=== PATIENT | female | born 1930 | race Caucasian/White ===

== ENCOUNTER 2016-07-25 05:57 | Day surgery (SDC) | payer MEDICARE, BC ==
[2016-07-21 09:36] LABS: HEMOGLOBIN 12.7 g/dL (12.0-16.0)
[2016-07-21 09:41] LABS: CHLORIDE, SERUM 100 MMOL/L (96-112); CO2 (CARBON DIOXIDE) 28 MMOL/L (24-34); CREATININE 1.26 MG/DL (0.55-1.02); GFR AFRICAN AMERICAN 44 ML/MIN (>=60); GFR NON AFRICAN AMERICAN 38 ML/MIN (>=60); POTASSIUM, SERUM 5.1 MMOL/L (3.5-5.3); SODIUM, SERUM 137 MMOL/L (135-148)
[2016-07-21 09:42] LABS: BUN (BLOOD UREA NITROGEN) 23 MG/DL (6-23); GLUCOSE, SERUM 105 MG/DL (60-99)
--- NOTE | ~2016-07-25 | OP ---
Record Of Operation [facility] [address] [place]. [address] NAME: RENEE SCHMID : 28 STATUS : [facility]#: [id number] AGE: 86 ADM/REG DATE : 07/25/16 MR#: [id number] REPORT SERV DATE: 07/25/16 DICTATED BY: CK SANDERS DATE: 07/25/16 REPORT STATUS : Draft TRANSCRIBED BY: MODJosh DATE: 07/25/16 DATE OF PROCEDURE: 07/25/2016 ANESTHESIA: General. COMPLICATIONS: None. ESTIMATED BLOOD LOSS: 10 mL. PREOPERATIVE DIAGNOSIS: Vulvar lesion with vulvar abscess. POSTOPERATIVE DIAGNOSIS: Vulvar lesion with vulvar abscess. OPERATION: Simple partial vulvectomy with excision of vulvar lesion/abscess bilaterally just anterior to the anus. PROCEDURE IN DETAIL: The patient was taken to the operating room and placed on the operating table in the Reginaldo stirrups. After adequate anesthesia, the patient was prepped and draped in usual sterile fashion. Two ellipses of skin and abscess were removed, one on each side of the anus anterior to the anus and the perineal area were excised. Each elliptical incision was approximately 4-5 cm in length. The lesions were superficially excised using cautery. Hemostasis was obtained, and the wounds were then reapproximated with multiple interrupted 2-0 Vicryl sutures. Hemostasis was noted to be good. The patient tolerated the procedure well and was taken to the recovery room in stable condition. RONNI Ck Sanders M.D. / [id number] CC: Catarino Le Rafael
[~2016-07-25 05:57] MED LIST: AQUASOL E50 UNT/ML PO; ASA5GR PO; BENICAR40 PO; CALTRAT600 PO; CLONAZEPAM PO; DIOV80 PO; DOLOPHINE5 MG PO; DRONED400 PO; FE C PO; FIBER TAB PO; FISH-EPA1000 MG PO; KLONO1 PO; MIRALAXPKT PO; MULTAQ400 MG PO; MULTIPLE VIT PO; MULTIVITAMI1 PO; MYRBETRIQ50 MG PO; NEUPRO 2MG2 MG/24 HR TOP; NEUR100 PO; ULTRAM50 PO; VITE PO; [UNRECOGNIZED DRUG - OTHER] PO
== END 2016-07-25 14:29 | disposition home or self-care (01) ==
LOC: SDC 05:57
PROVIDERS: Obstetrics & Gynecology Gynecology
PROC: 0HQAXZZ Repair Inguinal Skin, External Approach (ICD-10-PCS; 2016-07-25)
PROC: 0UBM0ZZ Excision of Vulva, Open Approach (ICD-10-PCS; principal; 2016-07-25 08:00)
DX: N90.7 Vulvar cyst (principal); F05 Delirium due to known physiological condition; I10 Essential (primary) hypertension; I48.0 Paroxysmal atrial fibrillation; G47.33 Obstructive sleep apnea (adult) (pediatric); Z98.890 Other specified postprocedural states; Z91.19 Patient's noncompliance with other medical treatment and regimen; Z88.5 Allergy status to narcotic agent; Z88.8 Allergy status to other drugs, medicaments and biological substances; Z91.048 Other nonmedicinal substance allergy status; Z79.82 Long term (current) use of aspirin; Z79.899 Other long term (current) drug therapy
CPT/HCPCS: 80048; 85014; 85018; 88304; 93005; A9270-GY; J0690; J1885; J3010